=== PATIENT | male | born 1945 | race Caucasian/White ===

== ENCOUNTER 2021-12-10 19:24 | Observation (INO) | payer MEDICARE, OTHER ==
[2021-12-10] MEDS ORDERED: Sodium Chloride 0.9% 500 ML IV ONE (19:26)
[2021-12-10] MEDS ORDERED: Sodium Chloride 0.9% 10 ML Syringe FLUSH PRN (19:26)
[2021-12-10] MEDS ORDERED: Sodium Chloride 0.9% 10 ML Syringe FLUSH ONE (19:57)
[2021-12-10] MEDS ORDERED: Sodium Chloride 0.9% 50 ML IV SCH (20:00)
[2021-12-10] MEDS ORDERED: Iopamidol 755 Mg/ML 100 ML Bottle IV SCH (20:00)
[2021-12-10 20:17] LABS: ESTIMATED GFR 91 mL/min (>60); TROPONIN I HIGH SENSITIVITY 8.4 pg/mL (<=60.3)
[2021-12-10] MEDS: Clopidogrel 75 MG Tab PO SCH (21:27)
[2021-12-10] MEDS: Aspirin 325 MG Tab.EC PO SCH (21:27)
[2021-12-10] MEDS ORDERED: Albuterol 0.083% 2.5 MG/3 ML Neb Soln NEB PRN (22:43)
[2021-12-10] MEDS ORDERED: Ondansetron 4 MG Tab.DIS PO PRN (22:43)
[2021-12-10] MEDS ORDERED: Acetaminophen 325 MG Tab PO PRN (22:43)
[2021-12-10] MEDS ORDERED: oxyCODONE 5 MG Tab PO PRN (22:43)
[2021-12-10] MEDS ORDERED: Bisacodyl 5 MG Tab PO PRN (22:43)
[2021-12-10] MEDS ORDERED: Docusate Sodium 100 MG Cap PO PRN (22:43)
[2021-12-10] MEDS ORDERED: Melatonin 3 MG Tab PO PRN (22:43)
[2021-12-10] MEDS ORDERED: Ondansetron 4 MG/2 ML SDV IV PRN (22:43)
[2021-12-10] MEDS ORDERED: Morphine 2 MG/ML SYRINGE IVPUSH PRN (22:43)
[2021-12-10] MEDS ORDERED: LORazepam 2 MG/ML SDV IV PRN (22:43)
[2021-12-11] MEDS ORDERED: Sodium Chloride 0.9% 1,000 ML IV SCH (00:15)
[2021-12-11] MEDS: Clopidogrel 75 MG Tab PO SCH (08:20)
[2021-12-11] MEDS: Aspirin 325 MG Tab.EC PO SCH (08:20)
[2021-12-11] MEDS ORDERED: Gadoteridol 279.3 MG/ML 15 ML SDV IV SCH (11:00)
[2021-12-11] MEDS ORDERED: atorvaSTATin 20 MG Tab PO SCH (21:00)
== END 2021-12-11 13:40 | disposition home or self-care (01) ==
LOC: JP.ED 19:24 → JP.MS 22:14
PROVIDERS: ADMIT Hospitalist; ATTEND Hospitalist
DX: I63.9 Cerebral infarction, unspecified (principal); R29.810 Facial weakness; R47.1 Dysarthria and anarthria; R47.81 Slurred speech; E78.00 Pure hypercholesterolemia, unspecified; I65.21 Occlusion and stenosis of right carotid artery; I67.82 Cerebral ischemia; Z79.02 Long term (current) use of antithrombotics/antiplatelets; Z87.891 Personal history of nicotine dependence; Z20.822 Contact with and (suspected) exposure to COVID-19; Z79.82 Long term (current) use of aspirin; Z79.899 Other long term (current) drug therapy
CPT/HCPCS: 36415; 70450; 70496; 70498; 70553; 80048; 80053; 82947; 84484; 85025; 85610; 85730; 93005; 99285; A9270; A9579; C8929; G0378; J3490; Q9967; U0002; 93010; 99217; 99219; 99291

== ENCOUNTER 2022-01-06 14:29 | Emergency (ER) | payer MEDICARE, OTHER | END 2022-01-06 15:53 | disposition left against medical advice (07) | LOC: JP.ED 14:29 | DX: Z53.21 Procedure and treatment not carried out due to patient leaving prior to being seen by health care provider (principal) ==